=== PATIENT | female | born 1995 ===

== ENCOUNTER 2018-07-04 20:19 | Emergency (ER) | payer OTHER ==
[2018-07-04 22:09] LABS: Urine Blood NEGATIVE (NEG); Urine Glucose NEGATIVE (NEG); Urine Protein 2+ (NEG); Urine Specific Gravity 1.025 (1.005-1.030)
[2018-07-04] MEDS ORDERED: NA CHLORIDE 0.9% 1,000 ML ONE (22:26)
[2018-07-04] MEDS ORDERED: ONDANSETRON 4 MG/2 ML VIAL ONE (22:26)
[2018-07-04 22:43] LABS: Absolute Lymphocytes (CBC) 1.2 K/uL (0.7-4.9); Absolute Monocytes 0.2 K/uL (0.1-1.3); Absolute Neutrophil 5.7 K/uL (1.8-8.0); Basophils % 0.1 % (0-1.3); Hematocrit 41.1 % (36.0-45.0); Lymphocytes % 16.6 % (15.3-44.8); MPV 8.5 fL (7.6-11.3); Monocytes % 2.6 % (3.3-12.3); RBC Red Blood Cell Count 4.86 M/uL (3.86-4.86)
[2018-07-04 23:01] LABS: Albumin 3.8 g/dL (3.4-5.0); Bilirubin Direct 0.2 mg/dL (0-0.2); Bilirubin Total 0.5 mg/dL (0.2-1.0); Potassium 3.6 mmol/L (3.5-5.1); Protein, Total 7.4 g/dL (6.4-8.2)
--- NOTE | 2018-07-05 00:30 | ER ---
Nurse's Notes [facility] Name: Xochilt Sosa Age: 23 yrs Sex: Female : 1995 Arrival Date: 07/04/2018 Time: 20:22 Bed 18 Private MD: Diagnosis: Other viral infections of unspecified site Presentation: 07/04 20:54 Presenting complaint: Patient states: Pt reports she has been running 105 fever, ea weakness, headache, not been able to eat and drink. Pt reports she took promethazine before arrival. Pt reports going to PCP today and was negative for strep and flu. Transition of care: patient was not received from another setting of care. 20:54 Method Of Arrival: Ambulatory ea 21:18 Onset of symptoms was July 04, 2018. Risk Assessment: Do you want to hurt yourself or ls4 someone else? Patient reports no desire to harm self or others. Initial Sepsis Screen: Does the patient meet any 2 criteria? No. Patient's initial sepsis screen is negative. Does the patient have a suspected source of infection? No. Patient's initial sepsis screen is negative. Care prior to arrival: None. 21:18 Acuity: ZAINAB 4 ls4 Triage Assessment: 21:01 General: Appears in no apparent distress. uncomfortable, Behavior is calm, cooperative, ea appropriate for age. General: Appears. Pain: Complains of pain in body aches. Neuro: Level of Consciousness is awake, alert, obeys commands, Oriented to person, place, time. Cardiovascular: Patient's skin is warm and dry. Respiratory: Airway is patent Respiratory effort is even, unlabored, Respiratory pattern is regular, symmetrical. [employer]IAN: 21:00 LMP 06/19/2018 ea Historical: - Allergies: 21:00 No Known Allergies; ea - Home Meds: 21:00 None [Active]; ea - PMHx: 21:00 None; ea - PSHx: 21:00 sinus surgery; gastric sleeve; ea - Immunization history:: Adult Immunizations up to date. - Social history:: Smoking status: Patient/guardian denies using tobacco. - Ebola Screening: : No symptoms or risks identified at this time. Screenin:10 Abuse screen: Denies threats or abuse. Denies injuries from another. Nutritional ls4 screening: No deficits noted. Tuberculosis screening: No symptoms or risk factors identified. Fall Risk None identified. Assessment: 21:11 General: Appears in no apparent distress. Behavior is calm, cooperative. Neuro: No ls4 deficits noted. Cardiovascular: Denies chest pain, diaphoresis, lightheadedness. Respiratory: Airway is patent Respiratory effort is even, unlabored, Respiratory pattern is regular. Derm: Skin is pink, warm \T\ dry. Musculoskeletal: No deficits noted. 21:53 Reassessment: Patient appears in no apparent distress at this time. Patient and/or ls4 family updated on plan of care and expected duration. Pain level reassessed. Patient is alert, oriented x 3, equal unlabored respirations, skin warm/dry/pink. 22:00 General: Appears in no apparent distress. Behavior is calm, cooperative. Pain: Denies ea pain. Neuro: Level of Consciousness is awake, alert, obeys commands, Oriented to person, place, time, situation. Cardiovascular: Patient's skin is warm and dry. Respiratory: Airway is patent Respiratory effort is even, unlabored, Respiratory pattern is regular, symmetrical. Derm: Skin is dry, Skin is pale, Skin temperature is warm. Vital Signs: 21:00 BP 135 / 90; Pulse 118; Resp 18; Temp 98.7; Pulse Ox 97% on R/A; Weight 97.98 kg; ea Height 5 ft. 5 in. (165.10 cm); 21:33 BP 128 / 76; Pulse 102; Resp 16; Temp 98.7; Pulse Ox 99% on R/A; ls4 22:41 BP 135 / 69; Pulse 103; Resp 18; Pulse Ox 97% on R/A; ea 23:00 BP 128 / 70; Pulse 100; Resp 18; Pulse Ox 99% ; ea 07/05 00:50 BP 125 / 77; Pulse 99; Resp 18; Pulse Ox 99% on R/A; ea 07/04 21:00 Body Mass Index 35.94 (97.98 kg, 165.10 cm) ea ED Course: 07/04 20:22 Patient arrived in ED. ag3 20:54 Tiffanie Vazquez, RN is Primary Nurse. ea 21:10 Patient has correct armband on for positive identification. Bed in low position. Call ls4 light in reach. Side rails up X 1. 21:10 No provider procedures requiring assistance completed. Patient did not have IV access ls4 during this emergency room visit. 21:15 Arm band placed on. ls4 21:18 Triage completed. ls4 21:33 Flu Sent. ls4 21:59 Mejia Fair PA is PHCP. [facility] 21:59 Solo Ingram MD is Attending Physician. michaelle 22:20 Inserted saline lock: 20 gauge in right antecubital area, using aseptic technique. ea Blood collected. 22:53 X-ray completed. Patient tolerated procedure well. Patient moved back from radiology. ls3 22:58 Chest Pa And Lat (2 Views) XRAY In Process Unspecified. EDMS Administered Medications: 22:19 Drug: Zofran 4 mg Route: IVP; Site: right antecubital; ea 23:00 Follow up: Response: No adverse reaction; Marked relief of symptoms ea 22:20 Drug: NS 0.9% 1000 ml Route: IV; Rate: 1 bolus; Site: right antecubital; ea 07/05 00:00 Follow up: Response: No adverse reaction; IV Status: Completed infusion; IV Intake: ea 1000ml 00:49 Drug: Tylenol 1000 mg Route: PO; ea 00:58 Follow up: Response: Medication administered at discharge. ea Intake: 00:00 IV: 1000ml; Total: 1000ml. ea Outcome: 00:30 Discharge ordered by . [facility] 01:04 Discharged to home ambulatory, with significant other. ea 01:04 Condition: improved 01:04 Discharge instructions given to patient, Instructed on discharge instructions, follow up and referral plans. medication usage, Demonstrated understanding of instructions, follow-up care, medications, Prescriptions given X 1. 01:05 Patient left the ED. ea Signatures: Dispatcher [employer] EDMS Mejia Fair PA PA jmm Antunez, Elena, RN RN Jem Ramirez ls3 Lucy Umaña 3 Mary Spangler, RN RN ls4
--- NOTE | 2018-07-05 00:31 | EDPHYS ---
Physician Documentation [facility] Name: Xochilt Sosa Age: 23 yrs Sex: Female : 1995 Arrival Date: 07/04/2018 Time: 20:22 Bed 18 Private MD: ED Physician Solo Ingram HPI: 07/04 21:13 This 23 yrs old Unknown Female presents to ER via Ambulatory with complaints of jmm Weakness. 21:13 The patient reports fever, that was measured at 105 degrees Fahrenheit. Onset: The jmm symptoms/episode began/occurred this morning. Associated signs and symptoms: Pertinent positives: headache. This is a 23 year old female with no chronic medical conditions that presents to the ED with complaints of headache, nausea, beginning this morning. Patient was evaluated by her pcp with negative flu and trep swab. Patient denies abdominal pain, denies shortness of breath, denies neck stiffness. . 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 - Social history:: Smoking status: Patient/guardian denies using tobacco. - Ebola Screening: : No symptoms or risks identified at this time. ROS: 21:13 Cardiovascular: Negative for chest pain, palpitations, and edema, Respiratory: Negative jmm for shortness of breath, cough, wheezing, and pleuritic chest pain. 21:13 Constitutional: Positive for fever. 21:13 Abdomen/GI: Positive for nausea, Negative for abdominal pain, diarrhea. 21:13 Neuro: Positive for headache. 21:13 All other systems are negative. Exam: 21:13 Constitutional: This is a well developed, well nourished patient who is awake, alert, jmm and in no acute distress. Head/Face: atraumatic. Eyes: EOMI, no conjunctival erythema appreciated ENT: Moist Mucus Membranes Neck: Trachea midline, Supple Chest/axilla: Normal chest wall appearance and motion. Cardiovascular: Regular rate and rhythm. No edema appreciated 21:13 Abdomen/GI: Inspection: abdomen appears normal, Palpation: abdomen is soft and non-tender, in all quadrants. 21:13 Back: ROM is normal. 21:13 Musculoskeletal/extremity: ROM: intact in all extremities. 21:13 Skin: Appearance: Color: normal in color. 21:13 Neuro: Orientation: is normal, Mentation: is normal, Memory: is normal. 21:13 Psych: Behavior/mood is pleasant, cooperative. Vital Signs: 21:00 BP 135 / 90; Pulse 118; Resp 18; Temp 98.7; Pulse Ox 97% on R/A; Weight 97.98 kg; ea Height 5 ft. 5 in. (165.10 cm); 21:33 BP 128 / 76; Pulse 102; Resp 16; Temp 98.7; Pulse Ox 99% on R/A; ls4 22:41 BP 135 / 69; Pulse 103; Resp 18; Pulse Ox 97% on R/A; ea 23:00 BP 128 / 70; Pulse 100; Resp 18; Pulse Ox 99% ; ea 07/05 00:50 BP 125 / 77; Pulse 99; Resp 18; Pulse Ox 99% on R/A; ea 07/04 21:00 Body Mass Index 35.94 (97.98 kg, 165.10 cm) ea MDM: 07/04 22:06 Patient medically screened. [facility] 07/05 00:29 Data reviewed: vital signs, nurses notes. Counseling: I had a detailed discussion with michaelle the patient and/or guardian regarding: the historical points, exam findings, and any diagnostic results supporting the discharge/admit diagnosis, lab results, radiology results, the need for outpatient follow up, to return to the emergency department if symptoms worsen or persist or if there are any questions or concerns that arise at home. ED course: Patient is alert and non toxic in appearance in the ED. Neck is supple. i do not suspect meningitis at this time. Abdomen is soft. Patient states that she feels much better after IVF. Patient is given return precautions. Patient understood and agrees with the plan of care. . 03 21:13 Order name: Flu ls4 07/04 21:13 Order name: Strep; Complete Time: 22:06 ls4 07/04 21:14 Order name: Influenza Screen (A ; Complete Time: 22:06 EDMS 07/04 21:48 Order name: Urine Dipstick--Ancillary (enter results); Complete Time: 22:15 mw2 07/04 21:48 Order name: Urine --Ancillary (enter results); Complete Time: 22:15 [facility] 07/04 21:54 Order name: Throat Culture [facility] 07/04 22:06 Order name: Basic Metabolic Panel; Complete Time: 23:04 [facility] 07/04 22:06 Order name: CBC with Diff; Complete Time: 23:04 [facility] 07/04 22:06 Order name: Creatinine for Radiology; Complete Time: 23:04 [facility] 07/04 22:06 Order name: Hepatic Function; Complete Time: 23:04 [facility] 07/04 22:06 Order name: Lipase; Complete Time: 23:04 [facility] 07/04 22:41 Order name: Chest Pa And Lat (2 Views) XRAY [facility] 07/04 21:13 Order name: Urine Dipstick-Ancillary (obtain specimen); Complete Time: 21:33 ls4 07/04 22:06 Order name: IV Saline Lock; Complete Time: 22:20 [facility] 07/04 22:06 Order name: Labs collected and sent; Complete Time: 22:20 [facility] 07/04 22:41 Order name: Urine Test (obtain specimen); Complete Time: 22:55 [facility] Administered Medications: 07/04 22:19 Drug: Zofran 4 mg Route: IVP; Site: right antecubital; ea 23:00 Follow up: Response: No adverse reaction; Marked relief of symptoms 22:20 Drug: NS 0.9% 1000 ml Route: IV; Rate: 1 bolus; Site: right antecubital; ea 07/05 00:00 Follow up: Response: No adverse reaction; IV Status: Completed infusion; IV Intake: ea 1000ml 00:49 Drug: Tylenol 1000 mg Route: PO; ea 00:58 Follow up: Response: Medication administered at discharge. ea Disposition: 05:08 Co-signature as Attending Physician, Solo Ingram MD Available for consultation at ps1 all times. . Disposition: 07/05/18 00:30 Discharged to Home. Impression: Other viral infections of unspecified site. - Condition is Stable. - Discharge Instructions: Viral Respiratory Infection. - Prescriptions for promethazine 25 mg Oral Tablet - take 1 tablet by ORAL route every 6 hours As needed; 20 tablet. - Medication Reconciliation Form, Thank You Letter, Antibiotic Education, Prescription Opioid Use, Work release form, Family Work Release form. - Follow up: Private Physician; When: 2 - 3 days; Reason: Recheck today's complaints, Continuance of care, Re-evaluation by your physician. Signatures: Dispatcher [employer] EDMejia Jha PA PA jmm Antunez, Elena, RN RN Solo Ochoa MD MD ps1 Stewart, Lisa RN RN ls4 Corrections: (The following items were deleted from the chart) 01:05 00:30 07/05/2018 00:30 Discharged to Home. Impression: Other viral infections of ea unspecified site. Condition is Stable. Forms are Medication Reconciliation Form, Thank You Letter, Antibiotic Education, Prescription Opioid Use. Follow up: Private Physician; When: 2 - 3 days; Reason: Recheck today's complaints, Continuance of care, Re-evaluation by your physician. michaelle
[2018-07-05] MEDS ORDERED: ACETAMINOPHEN 500 MG TAB ONE (01:03)
--- NOTE | 2018-07-05 08:17 | RAD REPORT ---
EXAM DESCRIPTION: RAD - Chest Pa And Lat (2 Views) - 07/04/2018 10:58 pm CLINICAL HISTORY: Fever COMPARISON: None. TECHNIQUE: PA and lateral views of the chest were obtained. FINDINGS: The lungs are clear. Heart size is normal and central vasculature is within normal limit s. No pleural effusion or pneumothorax seen. No acute bony finding noted. No aortic abnormality. IMPRESSION: No acute cardiopulmonary process.
== END 2018-07-05 01:05 | disposition home or self-care (01) ==
LOC: ER 20:19
DX: B33.8 Other specified viral diseases (principal)
CPT/HCPCS: 36415; 71046; 80048; 80076; 81003; 81025; 83690; 85025; 87070; 87081; 87804; 96361; 96374; 99284; J2405; J7030